=== PATIENT | female | born 1975 | race Caucasian/White ===

== ENCOUNTER → 2022-02-03 | Emergency (ER) | payer OTHER ==
[~2022-02-03] VITALS: Ht 157.5 cm; Wt 60.3 kg
[~2022-02-03] MED LIST: AMOX TR-K1 TAB.CHE2
== END | disposition left against medical advice (07) ==
LOC: ER 22:17
DX: Z53.21 Procedure and treatment not carried out due to patient leaving prior to being seen by health care provider (principal)